=== PATIENT | female | born 1970 | race Caucasian/White ===

== ENCOUNTER → 2017-02-23 | Outpatient (CLI) | payer MEDICAID | LOC: MC.RAD 09:40 | DX: Z12.31 Encounter for screening mammogram for malignant neoplasm of breast (principal) ==

== ENCOUNTER 2019-02-08 09:34 | Emergency (ER) | payer SELFPAY ==
[~2019-02-08] VITALS: Ht 157.5 cm; Wt 62.3 kg
[2019-02-08 09:42] VITALS: BP 137/88; TEMP 97.1
[2019-02-08] MEDS ORDERED: PREDNISONE20 MG PO (09:47)
[2019-02-08] MEDS ORDERED: DOXYCYCLINE 10100 MG PO ×3 (09:47→12:01)
[2019-02-08 10:17] LABS: BASO # 0.1 (0.0-0.2); BASO % 1.1 % (0.0-2.0); EOS # 0.6 (0.0-0.7); EOS % 9.9 % (0-4.0); GRAN # 2.8 (1.4-6.5); GRAN % 45.8 % (42.2-75.2); HEMATOCRIT 43.3 % (37.0-47.0); HEMOGLOBIN 14.6 g/dl (12.5-16.0); LYMPH # 2.1 (1.2-3.4); LYMPH % 33.6 % (20.0-51.0); MEAN CELL VOLUME 89 fl (80.0-100.0); MEAN CORPUSCULAR HEMOGLOBIN 30 pg (27.0-31.0); MEAN CORPUSCULAR HGB CONC 34 g/dl (33.0-37.0); MONO # 0.6 (0.1-0.6); MONO % 9.3 % (1.7-9.3); PLATELET COUNT 238 K/mm3 (130-400); RED BLOOD COUNT 4.87 M/mm3 (4.10-5.30); REDCELL DISTRIBUTION WIDTH-CV 12.6 % (11.5-14.5)
[2019-02-08 10:30] LABS: ALBUMIN 4.4 gm/dL (3.5-5.0); BILIRUBIN,TOTAL 0.4 mg/dL (0.0-1.0); CALCIUM 9.5 mg/dL (8.4-10.2); CREATININE, serum 0.83 (0.52-1.25); POTASSIUM 3.7 mmol/L (3.4-5.0); TOTAL PROTEIN 7.4 gm/dL (6.4-8.2)
[2019-02-08] MEDS ORDERED: FLONASE SENSIM9.9 ML NS (10:55)
[2019-02-08] MEDS ORDERED: CELEXA10 MG PO (10:55)
[2019-02-08] MEDS ORDERED: WELLBUTRIN 100100 MG PO (10:55)
[2019-02-08] MEDS ORDERED: CLARITIN REDIT (10:56)
[2019-02-08] MEDS ORDERED: IPRATROPIUM BROM3 M1 IH (12:01)
[2019-02-08 12:38] VITALS: PULSE 86
== END 2019-02-08 12:38 | disposition home or self-care (01) ==
LOC: COL.ER 09:34
PROVIDERS: Emergency Medicine
DX: J20.9 Acute bronchitis, unspecified (principal); J45.909 Unspecified asthma, uncomplicated; E78.5 Hyperlipidemia, unspecified; F17.210 Nicotine dependence, cigarettes, uncomplicated
CPT/HCPCS: J2930; J3475; J7030